=== PATIENT | male | born 1960 | race Caucasian/White ===

== ENCOUNTER 2023-01-07 05:53 | Emergency (ER) | payer OTHER, SELFPAY ==
[2023-01-07 05:58] VITALS: BP 117/74; PULSE 91; RESP 18; TEMP 36.6; O2SAT 95; BMI 25.8
--- NOTE | 2023-01-07 06:25 | ED_ITS ---
HPI - General Adult General Chief complaint: Sore Throat Stated complaint: throat and ear pain Time Seen by Provider: 01/07/23 06:25 History of Present Illness HPI narrative: starting 12/05 patient had chills, then started to develop sore Thorat and fevers on and off, fevers improve with meds but return . also describes plugged feeling in ears and pain bilateral ears. came to ER due to throat pain getting worse and causing pain with swallowing. took Tylenol around 0100 and alkalizer severe cold around 0345. denies any sick contacts 62-year-old man presenting to the emergency department with sore throat and full ears --though indicates just above the TMJ bilaterally as area of discomfort during exam. Had chills describing some pilar erectus 3 days ago and then increasingly sore throat. Fever measured up to 101.8? Hurts to swallow. Treated with acetaminophen and [place]. No particular exposures. Notes a history of tonsillectomy I believe due to recurrent infections. He notes though with more recent infection was noted to have residual tonsillar tissue. Related Data Previous Rx's Medication Instructions Recorded amoxicillin 875 mg tablet 875 mg PO BID 8 days #16 tabs 01/07/23 Allergies Allergy/AdvReac Type Severity Reaction Status Date / Time No Known Drug Allergies Allergy Verified 01/07/23 06:03 Review of Systems Status of ROS: Reports: 6 or more systems reviewed and unremarkable except as noted in History and below [facility] Social History Smoking Status: Former smoker Do you use any of these nicotine containing products: None How often do you have a drink containing alcohol: 2-4 times a month AUDIT-C Alcohol total score: 2 Non-prescribed substance use: denies use Exam Narrative: Exam Narrative: Pleasant. Throat sounds congested. Winces with swallowing. TMs bilaterally are clear. Sore to palpation just above bilateral TMJs. Neck is supple without lymphadenopathy actually. Breathing easily. No stridor. Skin is warm and dry without apparent rash. Oropharynx is moist. Little difficult to evaluate as he has quite a gag reflex. Darkly but mildly erythematous in the posterior oropharynx. No edema or asymmetry noted. Const: Vital Signs, click to edit/add: Vital Signs - 24 hr 01/07/23 05:58 Temperature 97.8 F Pulse Rate [Pulse Oximeter] 91 Respiratory Rate 18 Blood Pressure [Ri ght Upper Arm] 117/74 Pulse Oximetry 95 Documenting provider has reviewed patient's vital signs: yes Course Vital Signs Vital signs: Initial Vital Signs Temperature 97.8 F 01/07/23 05:58 Temperature Source Temporal Artery Scan 01/07/23 05:58 Pulse Rate 91 01/07/23 05:58 Respiratory Rate 18 01/07/23 05:58 Blood Pressure 117/74 01/07/23 05:58 Blood Pressure Mean 88 01/07/23 05:58 Blood Pressure Position Supine 01/07/23 05:58 Pulse Oximetry 95 01/07/23 05:58 Vital Signs Temperature 97.8 F 01/07/23 05:58 Pulse Rate 91 01/07/23 05:58 Respiratory Rate 18 01/07/23 05:58 Blood Pressure 117/74 01/07/23 05:58 Pulse Oximetry 95 01/07/23 05:58 Temperature 97.8 F 01/07/23 05:58 Pulse Rate 91 01/07/23 05:58 Respiratory Rate 18 01/07/23 05:58 Blood Pressure 117/74 01/07/23 05:58 Pulse Oximetry 95 01/07/23 05:58 Medical Decision Making MDM Narrative Medical decision making narrative: While I think this is low yield, strep and triple swab are pending. I did return to spray his throat with benzocaine spray which he readily accepted for the pain. Swabs are negative as expected. He is concerned about the degree of pain is having. See patient discharge plan Lab Data Lab results reviewed: Yes I reviewed the patient's lab results Labs: Lab Results 01/07/23 Range/Units 06:11 SARS-CoV-2 (PCR) Negative SARS-CoV-2 (Negative) Influenza Type A (PCR) Negative PCR FLU A (Negative) Influenza Type B (PCR) Negative PCR FLU B (Negative) RSV (PCR) Negative PCR RSV (Negative) Group A Strep DNA NOT DETECTED (Not Detectd) Discharge Plan Discharge Clinical Impression: Laryngitis, Pharyngitis Patient Disposition: Home w/ Parent or Adult Condition: Stable Additional Instructions: Focus on hydration. Might sleep under the mist of a cool mist humidifier. Long-acting pseudoephedrine might be helpful with the congestion and drying and therefore decrease irritation from postnasal drip on you throat. Can continue with anesthetic throat lozenges or sprays like Sucrets or Chloraseptic. Prednisone and [place] from [facility]. If not improved in 2 days a prescription for amoxicillin to fill will be available at your pharmacy. Can take up to 800 mg of ibuprofen or up to 1000 mg of acetaminophen per dose. Alternative to the ibuprofen might be up to 500 mg of naproxen 2 times daily. Prescriptions: New amoxicillin 875 mg tablet 875 mg PO BID 8 Days Qty: 16 0RF Follow Up/Referrals: Provider,Not a Local [Primary Care Provider] - Stand Alone Forms: [employer] Info Instructions
[2023-01-07 06:53] LABS: PCR FLU A Negative PCR FLU A (Negative); PCR FLU B Negative PCR FLU B (Negative); PCR RSV Negative PCR RSV (Negative)
[2023-01-07 07:18] LABS: Strep A DNA Probe* NOT DETECTED (Not Detectd)
[2023-01-07 07:19] LABS: SARS PCR* Negative SARS-CoV-2 (Negative)
== END 2023-01-07 07:49 | disposition home or self-care (01) ==
PROVIDERS: Emergency Provider Family Medicine
DX: Z20.822 Contact with and (suspected) exposure to COVID-19 (principal); J04.0 Acute laryngitis; J02.9 Acute pharyngitis, unspecified
CPT/HCPCS: 87631; 87651; 99283; 99284